=== PATIENT | male | born 1955 | race African-American/Black ===

== ENCOUNTER → 2018-03-31 | Outpatient (CLI) | payer OTHER | END | disposition home or self-care (01) | LOC: RAD 10:11 | DX: M19.041 Primary osteoarthritis, right hand (principal); M19.022 Primary osteoarthritis, left elbow | CPT/HCPCS: 73070; 73120 ==

== ENCOUNTER → 2019-10-26 | Outpatient (CLI) | payer OTHER ==
[~2019-10-26] MED LIST: ACET325T21 PO; AMLO10TA8 PO; ATOR20TA58 PO; GABA300C18 PO; IOHEXOL 180 MG/ML 10 ML VIAL. ONE; MELO15TA23 PO; METO100T7 PO; SPIR25TA5 PO; methylPREDNISolone ACETATE 40 MG/ML VIAL. ONE; methylPREDNISolone ACETATE 80 MG/ML VIAL. ONE
--- NOTE | 2019-10-26 23:31 | PAIN ---
DATE OF SERVICE: 10/26/2019 INITIAL CONSULTATION FOR PAIN CLINIC CHIEF COMPLAINT: Neck and left lower extremity pain. 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 The patient reports the pain is increasing now at the base of the neck and shoulder. He has had physical therapy as recently as last summer from March through May 2019 without significant decrease in pain. The patient has tried chiropractor treatment in the past, but nothing recently. He has not had any interventional techniques or other treatments at this time. The patient reports the pain is getting worse, radiating to the left upper extremity, mostly in the posterior bicep and deltoid, also the elbow and hand with numbness and tingling in both hands, worse on the left side, especially in the thumb and first finger. The patient reports it is becoming more constant, throbbing, shooting, describes it as radiating and numbness in the hand and arm, also in the back of the left shoulder and the back of the left deltoid as well on the left. The patient reports it is worse with activity, reaching over his head with his left arm, repetitive motions, weightbearing, and weight lifting. The patient reports it occasionally awakens him from sleep at night, but not every night, does not affect his bowel or bladder control or his ability to walk. The patient describes his disability rating from 0-10, 10 being the worst, as 3 with family home responsibilities, 10 with recreation and occupational activity, 8 with social activity, 4 with sexual behavior, 3 with self-care, and [address] activities. CT scan of cervical spine shows multilevel neural foraminal narrowing, severe on the left at C3-C4, C4-C5, bilaterally at C5-C6, on the left at C6-C7, and [id number] on the left at C7-T1 with moderate central canal stenosis flattening at C5-C6 as well. PAST MEDICAL HISTORY: Significant for hypertension, dizziness, and arthritis. PREVIOUS SURGERY: Include left wrist surgery, left elbow surgery, right hand surgery, and carpal tunnel release bilaterally. CURRENT MEDICATIONS: Include atorvastatin, spironolactone, metoprolol, amlodipine, gabapentin, Tylenol, and meloxicam. ALLERGIES: THE PATIENT IS ALLERGIC TO PENICILLIN. FAMILY HISTORY: Significant for no major medical problems or conditions that the patient lists. SOCIAL HISTORY: The patient does not drink alcohol. Does smoke less than a pack a day, has smoked for 40 years. Does not use any illegal, illicit or recreational drugs. He is single, lives locally in [place], [place]. The patient reports he is currently on disability from a work-related injury that is related to his current pain issue. REVIEW OF SYSTEMS: The patient's review of systems is positive for those items mentioned in history of present illness. All systems reviewed and otherwise negative. It is complete, full, and well-documented in the patient's chart. PHYSICAL EXAMINATION: VITAL SIGNS: The patient's blood pressure is 161/101, pulse 71, respirations 18, temperature 97.9 degrees Fahrenheit, height 63 inches, and weight is 212 pounds. GENERAL: The patient is awake, alert, oriented, appropriate, very pleasant demeanor. HEENT: Shows normocephalic, atraumatic. Extraocular movements are intact and symmetrical. Oral cavity: Mucous membranes moist and pink. Dentition is intact. NECK: Shows anterior throat supple without palpable lymphadenopathy noted. Swallow reflex is symmetrical. CHEST: Shows normal on inspection. Breath sounds are clear to auscultation bilaterally. HEART: Shows S1, S2 clear. No murmurs auscultated. ABDOMEN: Soft, nontender, nondistended. No palpable organomegaly is noted. No rebound or guarding demonstrated. BACK: Shows spine grossly in the midline, normal-appearing cervical lordotic curvature, thoracic kyphotic curvature and slight flattening of lumbar lordotic curvature. Cervical paraspinous muscle shows symmetrical on inspection, with palpation shows some moderate tenderness diffusely throughout the upper, middle and lower distribution of the paraspinous muscles, slightly worse in the inferior aspect of the left paraspinous and into the left inferior cervical paraspinous muscles and into the superior, medial and lateral trapezius on the left, more tender than the right, but again without specific atrophy, hypertrophy, no asymmetry, no trigger points. The patient has good rotational motion with some moderate pain with left lateral rotation past 45 degrees, but not with right side, not with extension, not with forward flexion, which are performed fully without significant difficulty. EXTREMITIES: The patient's upper extremities show deep tendon reflexes at 2+ in the biceps, triceps tendons. Motor exam is approximately 4 on a scale of 5, but equal and symmetrical with title 1 tutor strength, right and left. Bicep and tricep flexion are left, 4/5; right, 5/5. Peripheral pulses are 2+ in the radial distribution. No peripheral edema is noted. Upper extremities are warm and dry to touch, equal in color and appearance. Shoulder shrug is strong and intact without loss of strength on resistance, but with some moderate tenderness in the base of the neck on the left side radiating into the left lateral shoulder and into the anterior deltoid. No radiation on the right side. No loss of strength or resistance. This is true with abduction of shoulder to 90 degrees with pain on the left side, but not the right and no loss of strength bilaterally. SKIN: Shows warm and dry, good turgor. No edema. No sores, rashes or bruising throughout. IMPRESSION: 1. This is a 64-year-old male with approximate 6-year history of pain in the base of the neck, left upper extremity in a radicular fashion. 2. CT scan of cervical spine as noted. 3. Arthritis. 4. Hypertension. 5. Cigarette smoking. PLAN: Options were discussed with the patient including conservative medical managements, physical therapies and interventional techniques and he has done physical therapy and has had only minimal decrease in pain. We would like to try interventional techniques. We discussed a cervical epidural steroid injection using description as well as anatomical models to describe the procedure. Risks were then discussed including, but not limited to bleeding, infection, possibility of epidural hematoma, subsequent neurological compromise, dural puncture, headaches, spinal cord and/or nerve damage, side effects of steroid medication and poor results regarding pain control. The patient understands and wished to proceed. The patient will return to clinic in approximately 2 weeks for followup. He was counseled as to return appointment, activity level and side effects to be aware of. DIAGNOSES: Cervical radiculopathy with cervical degenerative disk disease and cervical spinal stenosis. PROCEDURE: Cervical epidural steroid injection, translaminar approach at C6-C7 level using C-arm fluoroscopic guidance under sterile prep and drape using local anesthetic. MEDICATION INJECTED: A total of 120 mg Depo-Medrol plus 5 mL of preservative-free normal saline and 2 mL of contrast. CONDITION AT DISCHARGE: Stable. The patient tolerated the procedure well and had no complications. JING MONTES MD DR: PRESTON/brian JOB#: [id number] / [id number]
== END ==
LOC: PNCL 11:25
PROVIDERS: ATTEND Anesthesiology
DX: M50.123 Cervical disc disorder at C6-C7 level with radiculopathy (principal); M48.02 Spinal stenosis, cervical region; I10 Essential (primary) hypertension; Z87.39 Personal history of other diseases of the musculoskeletal system and connective tissue; Z88.0 Allergy status to penicillin
CPT/HCPCS: 62321; J1030; J1040; Q9965

== ENCOUNTER → 2019-11-11 | Outpatient (CLI) | payer OTHER ==
--- NOTE | 2019-11-12 01:00 | PAIN ---
DATE OF SERVICE: 11/11/2019 PROGRESS NOTE FOR PAIN CLINIC DIAGNOSIS: Cervical radiculopathy with cervical degenerative disk disease and cervical spinal stenosis. HISTORY OF PRESENT ILLNESS: The patient is a 64-year-old male who returns for followup status post cervical epidural steroid injection x 1. The patient reports about 75% improvement for the first week. The pain is returning now in the base of neck and bilateral upper extremities, more on the right than the left, radiating in the base of the shoulders on the right arm, biceps and into the forearm on the right hand with some tingling, numbness in the right hand. The patient has some tenderness in the left arm as well, more on the anterior aspect and into the elbow. The patient reports the pain is aching, sharp, shooting, cramping, constant, worse with activity, worse with raising his arms over his head or any repetitive motions. The patient reports it is an 8 on a scale of 10 on average, 10 at its worst and 8 at its least. The patient reports it is an 8 today. The patient reports no new motor or sensory deficits, no new changes. PHYSICAL EXAMINATION: VITAL SIGNS: The patient's blood pressure is 130/101, pulse 75, respirations are 18, temperature is 98.2 degrees Fahrenheit, height is 6 feet 3 inches and weight is 213 pounds. GENERAL: The patient is awake, alert, oriented, appropriate, very pleasant demeanor. HEENT: Shows normocephalic, atraumatic. Extraocular movements are intact and symmetrical. Oral cavity pink. Membranes moist and pink. Dentition is intact. NECK: Shows anterior throat supple without palpable lymphadenopathy noted. Swallow reflex symmetrical. CHEST: Shows normal on inspection. Breath sounds are clear to auscultation bilaterally. HEART: Shows S1, S2 clear. No murmurs auscultated. ABDOMEN: Soft, nontender, nondistended. No palpable organomegaly is noted. BACK: Shows spine grossly in the midline, normal-appearing cervical lordotic curvature and thoracic kyphotic curvature. Cervical paraspinous muscle shows symmetrical on inspection, on palpation shows some moderate tenderness diffusely bilaterally, but only diffusely without significant radiation. The patient has good rotational motion of the cervical spine, both laterally as well as extension and flexion without significant increase in pain. EXTREMITIES: Upper extremities show deep tendon reflexes 2+ in the biceps, triceps tendons. Motor exam is strong with approximately 4/5 on the left biceps, triceps and 4/5 drawing checker bilaterally; 5/5 on the right bicep and triceps flexion and extension. Peripheral pulses are 2+ radial distribution. No peripheral edema bilaterally. Options were discussed with the patient. The patient's old chart was reviewed as his current medication regimen updated. Current review of systems updated today as well. We will proceed with a second cervical epidural steroid injection today with fluoroscopic guidance. Risks were again discussed including, but not limited to bleeding, infection, possibility of epidural hematoma, subsequent neurological compromise, dural puncture, headaches, spinal cord and/or nerve damage, side effects of steroid medication and poor results regarding pain control. The patient understands and wished to proceed. The patient will return to clinic in approximately 2 weeks for followup. He was counseled on return appointment, activity level, and side effects to be aware of. DIAGNOSIS: Cervical radiculopathy with cervical degenerative disk disease and cervical spinal stenosis. PROCEDURE: Cervical epidural steroid injection, translaminar approach C6-C7 level using C-arm fluoroscopic guidance under sterile prep and drape using local anesthetic. MEDICATION INJECTED: A total of 120 mg Depo-Medrol plus 5 mL of preservative-free normal saline and 2 mL of contrast. CONDITION AT DISCHARGE: Stable. The patient tolerated procedure well, had no complications. JING MONTES MD DR: PRESTON/brian JOB#: [id number] / [id number]
== END | disposition home or self-care (01) ==
LOC: PNCL 13:09
PROVIDERS: ATTEND Anesthesiology
DX: M50.123 Cervical disc disorder at C6-C7 level with radiculopathy (principal); M48.02 Spinal stenosis, cervical region; Z88.0 Allergy status to penicillin; Z98.890 Other specified postprocedural states
CPT/HCPCS: 62321; J1030; J1040; Q9965